=== PATIENT | male | born 1980 | race Caucasian/White ===

== ENCOUNTER 2018-05-07 12:21 | Emergency (ER) | payer BC, MEDICAID, SELFPAY ==
[2018-05-07 12:21] VITALS: BP 143/93; PULSE 73; RESP 18; TEMP 36.3; O2SAT 94; BMI 47.1
--- NOTE | 2018-05-07 12:45 | ED.DCSUM_ITS ---
- ER Visit Summary Date of Service: 05/07/18 Chief Complaint: Blood in urine History of Present Illness: The patient is a 38 M presenting with blood in urine. Patient states he has had blood in his urine since last night. He has passed several small clots. He has dysuria. He denies abdominal pain, nausea, vomiting. Denies fever. He is not on anticoagulants. He has not had these symptoms in the past. No other complaints. Physical Examination: Vitals are stable. Patient is afebrile. Alert no acute distress. HEENT exam is unremarkable. Neck is supple. Lungs are clear and equal bilaterally. Heart is regular rate and rhythm. Abdomen is soft nontender nondistended. Extremities are unremarkable. Skin is warm and dry. No focal neurologic deficit. Remainder of exam is unremarkable. Emergency Department Course and Treatment: CBC, chemistries unremarkable. Urinalysis shows 0-5 white blood cells, 25-50 red blood cells. Jay catheter was placed for irrigation. His urine is clear yellow with no clots. Jay catheter was removed. CT flank shows no renal ureteral bladder calculi. No evidence of hydronephrosis. Decompressed bladder surrounding a Jay. Clinical history recommend consideration for follow-up study such as cystoscopy. Diverticulosis no evidence of diverticulitis no evidence of appendicitis. Discussed with Dr. Best. Patient will follow-up as an outpatient. He is advised to return to ED for any worsening complaints. Disposition: Discharge home Impression: Hematuria This note was generated with [employer] dictation software. It may contain incorrect words, spelling, and punctuation that were not noted in review of the chart prior to signing ED Disposition - Plan for ED Patient: Chief Complaint: Complaint Referrals: Jefry Cortez DO [Primary Care Provider] -
[2018-05-07 12:52] LABS: Bacteria 0 SEEN /hpf (None Seen); Color, Urine Straw (Yellow); Glucose, Dipstick Normal (Normal); Ketone-Dipstick Negative (Negative); Leukocyte Esterase-Dipstick 25 /ul (Negative); Mucous, Urine 0 SEEN /hpf (<or=2+); Nitrite-Dipstick Negative (Negative); Occult Blood-Urine 250 /ul (Negative); Protein-Dipstick Negative (Negative); Specific Gravity, Urine 1.015 (1.002-1.030); Squamous Epithelial Cells - UA 0 SEEN /hpf (0-5); Urine Bilirubin Dipstick Negative (Negative); Urine Clarity Clear (Clear); Urine Urobilinogen Normal (Normal)
[2018-05-07 13:03] LABS: Red Blood Cells-Urine 25-50 SEEN /hpf (0-5); White Blood Cells 0-5 SEEN /hpf (0-5)
[2018-05-07 13:16] LABS: Absolute Lymphocyte Count 1.28 X10^3/ul (0.83-4.51); Absolute Neutrophil Count 4.1 X10^3/uL (2.0-7.7); Basophil# 0.04 X10^3/uL; Basophil% 0.6 % (0-1); Eosinophil# 0.17 X10^3/uL; Eosinophils% 2.7 % (0-5); Hematocrit 44.1 % (40-54); Hemoglobin 15.1 g/dl (13.0-16.5); Lymphocyte # 1.28 X10^3/ul (4.0); Lymphocyte % 20.5 % (19-41); Mean Corp Hgb Conc 34.2 g/gl (32-36); Mean Corpuscular Hgb 29.4 pg (27.0-32.0); Mean Corpuscular Volume 85.8 fL (80-94); Mean Platelet Vol. 8.7 fl (6.2-12.0); Monocyte# 0.63 X10^3/uL; Monocyte% 10.1 % (0-10); Neutrophil # 4.09 X10^3/uL (2.7-7.7); Neutrophil % 65.6 % (47-70); Platelet Count 287 K/mm3 (150-450); RBC Distribution Width CV 13.2 % (11.6-14.6); RBC Distribution Width SD 40.6 fl (35.1-43.9); Red Blood Count 5.14 M/mm3 (4.6-6.2); White Blood Count 6.2 K/mm3 (4.4-11.0)
[2018-05-07 13:17] LABS: POSITIVE COUNT NO; POSITIVE DIFFERENTIAL NO; POSITIVE MORPHOLOGY NO
[2018-05-07 13:30] LABS: Anion Gap 4 (5-15); BUN 12 mg/dL (7-18); BUN/Creat Ratio 14.6 RATIO (10-20); Calcium,Total 8.5 mg/dL (8.5-10.1); Chloride 107 mmol/L (98-107); Creatinine, Serum 0.82 mg/dL (0.70-1.30); EST Glomerular Filtration Rate 111 mL/min (>60); Est Glom Filt Rate - Afr Amer 134 mL/min (>60); Estimated Creatinine Clearance 118.17 ml/min; Glucose 90 mg/dL (74-106); Potassium 3.9 mmol/L (3.5-5.1); Sodium Level 139 mmol/L (136-145)
--- NOTE | 2018-05-07 14:25 | ED.DEP ---
ED Disposition - Plan for ED Patient: Chief Complaint: Complaint Instructions: ED Hematuria Referrals: Jefry Cortez DO [Primary Care Provider] - Andrew Best MD [STAFF PHYSICIAN] -
[2018-05-07 14:42] VITALS: BP 136/83; PULSE 75; RESP 16; O2SAT 94
--- NOTE | 2018-05-07 14:42 | ED.RN ---
REVIEWED D/C INSTRUCTIONS, FOLLOW UP CARE, AND S/S THAT WOULD WARRANT A RETURN TO THE ED WITH PT. PT VERBALIZED AN UNDERSTANDING AND DENIES FURTHER QUESTIONS FOR THIS RN. PT SKIN P/W/D, RESP EVEN AND UNLABORED, PT A&O X 3, NO DISTRESS NOTED. PT AMBULATED OUT OF ED, GAIT STEADY.
== END 2018-05-07 14:44 | disposition home or self-care (01) ==
LOC: ED 12:54
PROVIDERS: Emergency Provider Emergency Medicine; Family Provider Student in an Organized Health Care Education/Training Program; PCP Student in an Organized Health Care Education/Training Program
DX: R31.9 Hematuria, unspecified (principal); I10 Essential (primary) hypertension; Z79.899 Other long term (current) drug therapy
CPT/HCPCS: 51702; 74176; 80048; 81001; 85025; 99284; A4216

== ENCOUNTER → 2018-05-17 07:49 | Outpatient (CLI) | payer BC, MEDICAID, SELFPAY | PROVIDERS: Family Provider Student in an Organized Health Care Education/Training Program; PCP Student in an Organized Health Care Education/Training Program; Visit Provider Nurse Practitioner Adult Health | DX: R31.0 Gross hematuria (principal) | CPT/HCPCS: 74177; Q9967 ==

== ENCOUNTER → 2020-09-05 15:13 | Outpatient (CLI) | payer BC, MEDICAID, SELFPAY ==
--- NOTE | 2020-09-05 | VAS_PTH ---
PATIENT: NILES VALDERRAMA LOC: [facility] U#:[id number] AGE/SX: 45/M ROOM: RE09/05/[address]: Dr. Arik Simpson MD : 1980 BED: DIS: SPEC #: [id number] RECD: 09/05/20 15:03 STATUS: YE REAlethea #: [id number] KAYLAH: 09/05/20 00:[address]: Arik Simpson DEPT: SURGICAL PATHOLOGY RECD BY: Jose Mims ENTERED: 09/08/20 10:12 SP TYPE: VAS OTHR DR: Dr. Jefry Cortez DO Tissues: A - Vas deferens, NOS B - Vas deferens, NOS Procedures: Surgery Specimen Level II HEADER OPERATION: Bilateral partial vasectomy PRE-OP DIAGNOSIS: Sterilization TISSUE SUBMITTED: A - Right vas deferens, B - Left vas deferens MICROSCOPIC DIAGNOSIS A. Right vas deferens, partial vasectomy: Completely transected segment of vas deferens, no pathologic diagnosis. B. Left vas deferens, partial vasectomy: Completely transected segment of vas deferens, no pathologic diagnosis. VEGA:epifanio 09/09/20 MICROSCOPIC DESCRIPTION Slides are reviewed. GROSS DESCRIPTION A - Received is one container designated right vas deferens. The specimen consists of a tubular piece of jose soft tissue measuring 1.1 cm in length and 0.2 cm in diameter. The entire specimen is submitted in one cassette. It will be serially sectioned at the time of embedding. B - Received is one container designated left vas deferens. The specimen consists of two tubular pieces of jose soft tissue measuring 0.7 and 0.6 cm in length and 0.2 cm in diameter. The entire specimen is submitted in one cassette. The specimen will be sectioned at the time of embedding. / VEGA:epifanio 09/08/20 TC:4 CPT: 94003 x2
== END ==
PROVIDERS: PCP Student in an Organized Health Care Education/Training Program; Referring Provider Surgery; Visit Provider Surgery
DX: Z30.2 Encounter for sterilization (principal)
CPT/HCPCS: 88302

== ENCOUNTER → 2020-10-14 17:03 | Outpatient (CLI) | payer OTHER, MEDICAID, SELFPAY ==
[2020-10-16 12:23] LABS: Semen Analysis Post Vas ABSENT
== END ==
PROVIDERS: PCP Student in an Organized Health Care Education/Training Program; Referring Provider Surgery; Visit Provider Surgery
DX: Z30.2 Encounter for sterilization (principal)
CPT/HCPCS: 89321

== ENCOUNTER 2021-02-18 05:58 | Day surgery (SDC) | payer OTHER, SELFPAY ==
[2021-01-23 14:50] VITALS: BMI 48.6
--- NOTE | 2021-02-13 11:17 | EKG12_ITS ---
Test Reason : PREOP Blood Pressure : / mmHG Vent. Rate : 069 BPM Atrial Rate : 069 BPM P-R Int : 162 ms QRS Dur : 114 ms QT Int : 414 ms P-R-T Axes : 040 -13 014 degrees QTc Int : 443 ms Normal sinus rhythm with sinus arrhythmia Normal ECG When compared with ECG of 20-MAY-2016 16:34, No significant change was found Confirmed by KELLY GOMEZ, RICCO ([id number]), newspaper or periodical editor ELIANA PATRICK ([id number]) on 02/17/2021 2:06:30 PM Referred By: Ifeanyi Gtz Confirmed By:RICCO MENDOZA MD
[2021-02-13 12:23] LABS: Hematocrit 43.4 % (40-54); Mean Corp Hgb Conc 32.3 g/dL (32-36); Mean Corpuscular Hgb 28.5 pg (27.0-32.0); Mean Corpuscular Volume 88.4 fL (80-94); Mean Platelet Vol. 9.2 fl (6.2-12.0); Platelet Count 303 K/mm3 (150-450); RBC Distribution Width CV 13.2 % (11.6-14.6); RBC Distribution Width SD 42.6 fl (35.1-43.9); Red Blood Count 4.91 M/mm3 (4.6-6.2); White Blood Count 6.4 K/mm3 (4.4-11.0)
[2021-02-13 12:46] LABS: Anion Gap 4 (5-15); BUN 19 mg/dL (7-18); BUN/Creat Ratio 21.6 RATIO (10-20); Calcium,Total 8.6 mg/dL (8.5-10.1); Chloride 106 mmol/L (98-107); Creatinine, Serum 0.88 mg/dL (0.70-1.30); EST Glomerular Filtration Rate 102 mL/min (>60); Est Glom Filt Rate - Afr Amer 123 mL/min (>60); Glucose 107 mg/dL (74-106); Potassium 3.9 mmol/L (3.5-5.1); Sodium Level 139 mmol/L (136-145)
[2021-02-18] VITALS (7 sets, daily range): BP systolic 125–149; BP diastolic 63–83; PULSE 74–99; RESP 16–18; TEMP 36–37.2; O2SAT 92–97; BMI 48.8
[2021-02-18] MEDS: Lactated Ringers 1,000 ML 100 ML IV (06:30)
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
--- NOTE | 2021-02-18 07:30 | HERN_PTH ---
PATIENT: NILES VALDERRAMA LOC: [facility] U#:[id number] AGE/SX: 40/M ROOM: RE02/18/[address]: Dr. Ifeanyi Gtz MD : 1980 BED: DIS: 02/18/2021 SPEC #: [id number] RECD: 02/18/21 11:24 STATUS: EY RYLEY #: [id number] KAYLAH: 02/18/21 07:[address]: Ifeanyi Gtz DEPT: SURGICAL PATHOLOGY RECD BY: Antonio Martinez ENTERED: 02/18/21 11:40 SP TYPE: Hernia OTHR DR: Dr. Jefry Cortez, DO Tissues: HERNIA Procedures: Surgery Specimen Level II HEADER OPERATION: Umbilical hernia repair with mesh PRE-OP DIAGNOSIS: Umbilical hernia TISSUE SUBMITTED: Hernia sac MICROSCOPIC DIAGNOSIS Hernia sac: Pieces of fibroadipose and fibroconnective tissue, consistent with hernia sac. SJ:epifanio 02/19/2021 MICROSCOPIC DESCRIPTION Slides are reviewed. GROSS DESCRIPTION Received in fixative is one container labeled with the patient's name and designated hernia sac. The specimen consists of two pieces of jose-pink soft tissue that in aggregate measure 7 x 5 x 1 cm. No mass lesion is identified. Coremaker Supervisor sections are submitted in one cassette. / SJ:epifanio 02/18/21 TC:5 CPT: 33705
--- NOTE | 2021-02-18 09:09 | OP.PCM_ITS ---
Problems Associated Problem List Diagnoses (1) Umbilical hernia: Report of Operation Date of Procedure: 02/18/21 Pre-Operative Diagnosis: Umbilical hernia Post-Operative Diagnosis: Same Surgery/Procedure Performed:: Umbilical hernia repair with mesh Specimen's removed: Hernia sac Description of Procedure: In general anesthesia was used. The abdomen was prep ped and draped in usual sterile fashion. A curvilinear incision was injected with local anesthetic superior to the umbilicus and then incision was made with a scalpel. The incision was deepened to the hernia sac using electrocautery. The hernia sac was incised using scissors and cleared of any contents. The hernia sac was then removed using electrocautery and sent for pathology. The fascia was elevated and cleared and the preperitoneal space was dissected circumferentially. The peritoneum was reapproximated using running 3-0 Vicryl suture. The cavity was irrigated and suctioned dry and there was good hemostasis. A large ventralex ST mesh was placed in the preperitoneal space. The mesh was tacked to the anterior fascia using interrupted 0 PDS sutures. The cavity was irrigated and suctioned dry. The fascia was reapproximated using 0 Nurolon sutures in an interrupted fashion. The subcutaneous tissue was suctioned dry and the umbilicus was tacked to the fascia using 3-0 Vicryl suture. The incision was closed using interrupted 3-0 Vicryl sutures and then a running 4-0 Monocryl suture. Steri-Strips and bandages were applied. Patient tolerated the procedure well. Grafts/Implants Used: Large ventralex ST mesh Admit VTE Documentation VTE Mechan Device Prophylaxis: SCD's
--- NOTE | 2021-02-18 09:25 | EX.PCM.DISCH ---
Discharge Instructions Procedure Hernia Diet Discharge Diet: Light diet - advance as tolerated Activity Discharge Activity: May Not Drive (for 2-3 days or while taking narcotic pain meds.) and May Shower (with the bandage in place 1-2 days after surgery.) Lifting Restrictions: 20 pounds for 6 weeks. Additional Activity Instructions:: Climbing stairs is fine, walking is encouraged. Sitting in bed may be uncomfortable. Sitting up using your lateral muscles (sitting up sideways) is usually more comfortable. Do not drive, work heavy equipment of sign legal documents for 24 hours. Pain medications may cause nausea, you should typically eat light foods as you take your pain medications. Pain medications may also cause constipation. If you have difficulty with this, discuss with your doctor. Dressing / Incision Call your doctor if your incision/area has: Continuous Slow Oozing, Sudden Increased Bleeding, Increased Pain/ Swelling, Increased Redness and Foul Smelling Discharge Call your doctor if you observe: Fever of 101 or Higher Suture Line Care: Avoid Pulling/Pushing and Avoid Pinching/Bending Remove Dressing in: 3 days Cleanse incision/area with: Soap & Water Additional Dressing/Incision Instructions:: Remove dressing in 3 days, remove steri strips in 7-10 days Follow Up Care Please Follow Up With: Ifeanyi Gtz MD When: Please call to schedule 2 week follow up appointment. [phone] Test Results: Test results from this visit will be discussed in further detail at your follow-up appointment, if applicable. Discharge Plan Admission Attending Provider: Ifeanyi Gtz Primary Care Provider: Jefry Cortez Discharge Orders/Prescriptions Prescriptions: New oxycodone-acetaminophen [Percocet] 5-325 mg tablet 1 - 2 tab PO Q6H PRN (Reason: pain) 5 Days Qty: 30 RF: 0 No Action dextroamphetamine-amphetamine [Adderall] 30 mg tablet 30 mg PO DAILY RF: 0 nabumetone [Relafen] 500 mg tablet 500 mg PO DAILY RF: 0 lisinopril-hydrochlorothiazide 20-12.5 mg tablet 2 tab PO DAILY RF: 0 amlodipine 2.5 mg tablet 2.5 mg PO DAILY RF: 0 Other Ambulatory Orders: 12 Lead EKG (Routine) Location: None Selected Ordered By: Dr. Brian Shea Referrals / Follow Up: Cortez,Jefry, DO [Primary Care Provider] - Disposition Disposition (needs filled in before D/C Order can be placed): Home, self care
[2021-02-18] MEDS: oxyCODONE 5 MG Tablet PO (10:23)
[2021-02-18] MEDS: Acetaminophen 325 MG Tablet PO (10:23)
== END 2021-02-18 11:06 | disposition home or self-care (01) ==
LOC: SDC 05:58 → AC 05:59
PROVIDERS: Anesthesiology; PCP Student in an Organized Health Care Education/Training Program; Referring Provider Surgery; Visit Provider Surgery
PROC: (CPT 49585; principal; 2021-02-18 07:15)
DX: K42.9 Umbilical hernia without obstruction or gangrene (principal); Z79.899 Other long term (current) drug therapy; G47.30 Sleep apnea, unspecified; E66.9 Obesity, unspecified; I10 Essential (primary) hypertension; Z87.19 Personal history of other diseases of the digestive system; Z68.42 Body mass index [BMI] 45.0-49.9, adult
CPT/HCPCS: 49585; 36415; 80048; 85027; 87426; 88302; 93005; C9803; J7120; C1781; J2405

== ENCOUNTER 2022-01-09 11:58 | Emergency (ER) | payer BC, MEDICAID, SELFPAY ==
[2022-01-09 11:59] VITALS: BP 141/81; PULSE 75; RESP 18; TEMP 36.4; O2SAT 97; BMI 51.3
--- NOTE | 2022-01-09 12:10 | US_ITS ---
STUDY: SCROTUM ULTRASOUND REASON FOR EXAM: Male, 41 years old. Left testicular pain. TECHNIQUE: Ultrasound evaluation of the scrotum was performed with color Doppler and static wilkins-scale imaging. COMPARISON: None. FINDINGS: RIGHT TESTICLE INTRATESTICULAR: There is a normal size of the right testicle. The right testicle measures 4.1 x 3.3 x 2.2 cm. There is a homogenous echotexture. There is normal arterial and normal venous vascularity. There is a 7 mm cyst in the right testicle. No internal echoes are seen within it. EXTRATESTICULAR: The epididymis is normal in size. The epididymis head measures 1.4 cm. There is normal vascularity of the epididymis. There is no demonstrated epididymal cystic structure. There is no demonstrated hydrocele. There is no demonstrated varicocele. There is no demonstrated extratesticular mass or cyst. LEFT TESTICLE INTRATESTICULAR: There is a normal size of the left testicle. The left testicle measures 3.6 x 3.4 x 3.1 cm. There is a homogenous echotexture. There is normal arterial and normal venous vascularity. There is no demonstrated left testicular mass or cyst. EXTRATESTICULAR: The epididymis is normal in size. The epididymis head measures 1.8 cm. There is normal vascularity of the epididymis. There is no demonstrated epididymal cystic structure. There is no demonstrated hydrocele. There is no demonstrated varicocele. There is a well-defined 9 mm nodule in the left epididymal head which appears to be solid. US/Testicular with Arterial Flow IMPRESSION: No evidence of testicular torsion at the time this examination was performed. Left epididymal nodule as described above. It could represent epididymal leiomyoma. Other etiologies cannot be excluded. Urologic consultation and follow-up examination in 3 months are recommended. Electronically Signed: Broderick Stokes MD at 13:30 EDT ,
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
[2022-01-09 13:09] LABS: Color, Urine Yellow (Yellow); Glucose, Dipstick Normal (Normal); Ketone-Dipstick 5 mg/dl (Negative); Leukocyte Esterase-Dipstick 25 /ul (Negative); Nitrite-Dipstick Negative (Negative); Occult Blood-Urine 10 /ul (Negative); Protein-Dipstick 15 mg/dl (Negative); Specific Gravity, Urine 1.025 (1.002-1.030); Urine Clarity Clear (Clear); Urine Urobilinogen 1 mg/dl (Normal)
[2022-01-09 13:11] LABS: Urine Bilirubin Dipstick 6 mg/dL (Negative)
[2022-01-09 13:21] LABS: Bacteria RARE /hpf (None Seen); Mucous, Urine 1+ /hpf (<or=2+); Red Blood Cells-Urine 0-5 SEEN /hpf (0-5); White Blood Cells 0-5 SEEN /hpf (0-5)
[2022-01-09 13:22] LABS: Squamous Epithelial Cells - UA 0-5 SEEN /hpf (0-5)
[2022-01-09 14:07] VITALS: BP 133/85; PULSE 72; RESP 16; TEMP 36.9; O2SAT 98
== END 2022-01-09 15:00 | disposition home or self-care (01) ==
PROVIDERS: Emergency Provider Emergency Medicine; PCP Student in an Organized Health Care Education/Training Program; Visit Provider Emergency Medicine
DX: N50.812 Left testicular pain (principal); G47.30 Sleep apnea, unspecified
CPT/HCPCS: 76870; 81001; 93976; 99282

== ENCOUNTER 2023-07-22 16:50 | Emergency (ER) | payer BC, MEDICAID, SELFPAY ==
[2023-07-22 16:51] VITALS: BP 133/85; PULSE 90; RESP 18; TEMP 36.1; O2SAT 93; BMI 44.1
[2023-07-22] MEDS: Fluorescein 1 MG STRIP 1 STRIP LEFT EYE (17:42)
[2023-07-22] MEDS: Tetracaine 0.5% Ophthalmic Bottle 1 DRP LEFT EYE (17:42)
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
== END 2023-07-22 18:28 | disposition home or self-care (01) ==
PROVIDERS: Emergency Provider Emergency Medicine; PCP Student in an Organized Health Care Education/Training Program; Visit Provider Emergency Medicine
DX: H57.12 Ocular pain, left eye (principal); H15.102 Unspecified episcleritis, left eye; G47.30 Sleep apnea, unspecified
CPT/HCPCS: 99282